=== PATIENT | female | born 1975 | race Caucasian/White ===

== ENCOUNTER 2023-01-28 20:38 | Emergency (ER) | payer OTHER, SELFPAY ==
[2023-01-28 20:42] VITALS: BP 160/93; PULSE 91; RESP 16; TEMP 37.2; O2SAT 96; BMI 43.6
--- NOTE | 2023-01-28 20:42 | ED_ITS ---
HPI - Allergic Reaction General Chief complaint: Allergic Reaction Stated complaint: allegric reaction Related Data Allergies Allergy/AdvReac Type Severity Reaction Status Date / Time Penicillins [PENICILLINS] Allergy Unknown UNKNOWN Verified 01/28/23 20:47 AVALOX Allergy Unknown Unknown Uncoded 01/28/23 20:47 Penicillin Allergy Unknown Unknown Uncoded 01/28/23 20:47 PMFSH Social History Social History Advance Directives: No Advance Directives Information Provided: No Physical Exam ED Vital Signs: Vital Signs - 24 hr 01/28/23 20:42 Temperature 99.0 F Pulse Rate 91 Respiratory Rate 16 Blood Pressure 160/93 H Pulse Oximetry 96 Oxygen Delivery Method Room Air BMI result Body Mass Index 43.6 Course Course Course Narrative: This is a rapid medical exam. deferred additional HPI, ROS, PE to primary provider. 47 yo female with history of asthma here with complaints of hives for the last few days, today noticed lip swelling/right facial swelling. Took benadryl [employer], used albuterol inhaler x 1. Did start using peroxyl for her dental pain but no other new medications, products or exposures the patient can think of. VSS Discharge Plan Discharge Clinical Impression: Allergic reaction Patient Disposition: Elopement Interventions: ED Discharge Assessment Last Done: 01/29/23 01:04 Discharge Date/Time: 01/29/23 01:04
== END 2023-01-29 01:04 | disposition left against medical advice (07) ==
PROVIDERS: Emergency Provider Emergency Medicine
DX: L50.9 Urticaria, unspecified (principal); T78.40XA Allergy, unspecified, initial encounter; X58.XXXA Exposure to other specified factors, initial encounter; J45.909 Unspecified asthma, uncomplicated
CPT/HCPCS: 99282